=== PATIENT | female | born 1990 | race Caucasian/White ===

== ENCOUNTER → 2017-08-13 | Outpatient (CLI) | payer BC | END | disposition home or self-care (01) | LOC: RAD 09:32 | PROC: BU18YZZ Fluoroscopy of Uterus and Fallopian Tubes using Other Contrast (ICD-10-PCS; principal; 2017-08-13) | PROC: 0UJ87ZZ Inspection of Fallopian Tube, Via Natural or Artificial Opening (ICD-10-PCS; principal; 2017-08-13) | PROC: 0UJD7ZZ Inspection of Uterus and Cervix, Via Natural or Artificial Opening (ICD-10-PCS; principal; 2017-08-13) | DX: Z31.41 Encounter for fertility testing (principal) | CPT/HCPCS: 74740 ==

== ENCOUNTER 2017-09-18 12:25 | Day surgery (SDC) | payer BC ==
[~2017-09-18] VITALS: Ht 170.2 cm; Wt 115.6 kg
[~2017-09-18 12:25] MED LIST: ZOLOFT50 MG PO
[2017-09-18 12:39] VITALS: BP 133/81
[2017-09-18 18:15] VITALS: BP 113/64
[2017-09-18 19:15] VITALS: BP 133/66
== END 2017-09-18 19:35 | disposition home or self-care (01) ==
LOC: SDC 12:25
PROC: 0LQT0ZZ Repair Left Ankle Tendon, Open Approach (ICD-10-PCS; principal; 2017-09-18)
DX: S86.392A Other injury of muscle(s) and tendon(s) of peroneal muscle group at lower leg level, left leg, initial encounter (principal); S93.492A Sprain of other ligament of left ankle, initial encounter; M76.72 Peroneal tendinitis, left leg; I10 Essential (primary) hypertension; J45.909 Unspecified asthma, uncomplicated; W18.09XA Striking against other object with subsequent fall, initial encounter; Y93.01 Activity, walking, marching and hiking; Y92.009 Unspecified place in unspecified non-institutional (private) residence as the place of occurrence of the external cause
CPT/HCPCS: J0131; J0330; J0690; J1100; J1170; J1885; J2405; J3010; S0020